=== PATIENT | female | born 1985 | race Caucasian/White ===

== ENCOUNTER → 2017-01-13 | Outpatient (CLI) | payer BC ==
[~2017-01-13] VITALS: Ht 167.6 cm; Wt 106.8 kg
[~2017-01-13] MED LIST: FASTIN30 MG PO; IBU-6600 MG PO; NEXPLANON68 MG ID; PERCOCET 325 MG1 TA2 PO; PRENATAL1 TA1; PRENATAL1 TA7 PO; YAZ 28 3 MG-0.01 TAB PO
[2017-01-13 09:11] VITALS: BP 130/71; PULSE 80
== END ==
LOC: LIGHT 09:00
DX: J30.89 Other allergic rhinitis (principal); R53.83 Other fatigue; F32.89 Other specified depressive episodes; E66.01 Morbid (severe) obesity due to excess calories; Z68.38 Body mass index [BMI] 38.0-38.9, adult

== ENCOUNTER → 2017-02-01 | Outpatient (CLI) | payer BC ==
[~2017-02-01] VITALS: Ht 167.6 cm; Wt 102.3 kg
== END ==
LOC: LIGHT 11:11
DX: Z68.36 Body mass index [BMI] 36.0-36.9, adult (principal)

== ENCOUNTER → 2017-02-11 | Outpatient (CLI) | payer BC ==
[~2017-02-11] VITALS: Ht 167.6 cm; Wt 98.9 kg
[2017-02-24 11:20] VITALS: BP 121/59; PULSE 73
== END ==
LOC: LIGHT 09:45
DX: J30.89 Other allergic rhinitis (principal); F32.89 Other specified depressive episodes; E66.8 Other obesity; Z68.36 Body mass index [BMI] 36.0-36.9, adult; E88.81 Metabolic syndrome and other insulin resistance; G47.09 Other insomnia

== ENCOUNTER → 2017-02-24 | Outpatient (CLI) | payer BC | LOC: LIGHT 09:53 | DX: Z71.3 Dietary counseling and surveillance (principal); Z68.35 Body mass index [BMI] 35.0-35.9, adult ==

== ENCOUNTER → 2017-03-11 | Outpatient (CLI) | payer BC ==
[~2017-03-11] VITALS: Ht 167.6 cm; Wt 95.9 kg
[2017-03-11 10:37] VITALS: BP 102/60; PULSE 68
== END ==
LOC: LIGHT 10:35
DX: J30.9 Allergic rhinitis, unspecified (principal); F32.89 Other specified depressive episodes; E66.9 Obesity, unspecified; Z68.34 Body mass index [BMI] 34.0-34.9, adult

== ENCOUNTER → 2017-04-22 | Outpatient (CLI) | payer BC ==
[~2017-04-22] VITALS: Ht 167.6 cm; Wt 94.6 kg
[2017-04-22 10:28] VITALS: BP 101/56; PULSE 88
== END ==
LOC: LIGHT 10:25
DX: J30.9 Allergic rhinitis, unspecified (principal); F32.89 Other specified depressive episodes; E66.9 Obesity, unspecified; Z68.33 Body mass index [BMI] 33.0-33.9, adult; Z71.3 Dietary counseling and surveillance

== ENCOUNTER → 2017-07-01 | Outpatient (CLI) | payer BC ==
[~2017-07-01] VITALS: Ht 167.6 cm; Wt 98.0 kg
[2017-07-01 10:32] VITALS: BP 98/50; PULSE 60
== END ==
LOC: LIGHT 05-27 15:51
DX: E66.9 Obesity, unspecified (principal); J30.9 Allergic rhinitis, unspecified; F32.9 Major depressive disorder, single episode, unspecified; Z68.34 Body mass index [BMI] 34.0-34.9, adult

== ENCOUNTER → 2017-09-09 | Outpatient (CLI) | payer BC ==
[~2017-09-09] VITALS: Ht 167.6 cm; Wt 94.1 kg
[2017-09-09 09:51] VITALS: BP 104/74; PULSE 72
== END ==
LOC: LIGHT 09:39
DX: J30.9 Allergic rhinitis, unspecified (principal); R53.83 Other fatigue; F32.89 Other specified depressive episodes; E66.9 Obesity, unspecified; Z68.33 Body mass index [BMI] 33.0-33.9, adult; Z71.3 Dietary counseling and surveillance

== ENCOUNTER → 2017-11-25 | Outpatient (CLI) | payer BC ==
[~2017-11-25] VITALS: Ht 167.6 cm; Wt 94.1 kg
[2017-11-25 11:37] VITALS: BP 92/52; PULSE 64
== END ==
LOC: LIGHT 11:16
DX: J30.9 Allergic rhinitis, unspecified (principal); R53.83 Other fatigue; F32.89 Other specified depressive episodes; E66.9 Obesity, unspecified; Z68.33 Body mass index [BMI] 33.0-33.9, adult; Z71.3 Dietary counseling and surveillance
CPT/HCPCS: G0463

== ENCOUNTER → 2018-01-20 | Outpatient (CLI) | payer BC ==
[~2018-01-20] VITALS: Ht 167.6 cm; Wt 88.5 kg
[~2018-01-20] MED LIST changes: +CONCEPT DHA1 CAP PO
[2018-01-20 11:09] VITALS: BP 90/52; PULSE 72
== END ==
LOC: LIGHT 09:33
DX: J30.9 Allergic rhinitis, unspecified (principal); R53.83 Other fatigue; F32.89 Other specified depressive episodes; E66.9 Obesity, unspecified; Z68.31 Body mass index [BMI] 31.0-31.9, adult; Z71.3 Dietary counseling and surveillance
CPT/HCPCS: G0463

== ENCOUNTER → 2018-05-05 | Outpatient (CLI) | payer BC ==
[~2018-05-05] VITALS: Ht 167.6 cm; Wt 88.5 kg
[2018-05-05 10:33] VITALS: BP 94/56; PULSE 92
== END ==
LOC: LIGHT 03-31 10:50
DX: J30.9 Allergic rhinitis, unspecified (principal); R53.83 Other fatigue; F32.89 Other specified depressive episodes; E66.9 Obesity, unspecified; Z68.31 Body mass index [BMI] 31.0-31.9, adult; Z71.3 Dietary counseling and surveillance
CPT/HCPCS: G0463

== ENCOUNTER → 2018-07-21 | Outpatient (CLI) | payer BC ==
[~2018-07-21] VITALS: Ht 167.6 cm; Wt 88.5 kg
[2018-07-21 10:16] VITALS: BP 90/50; PULSE 100
== END ==
LOC: LIGHT 04-05 09:46
DX: J30.9 Allergic rhinitis, unspecified (principal); R53.83 Other fatigue; F32.9 Major depressive disorder, single episode, unspecified; E66.9 Obesity, unspecified; Z68.31 Body mass index [BMI] 31.0-31.9, adult; Z71.3 Dietary counseling and surveillance
CPT/HCPCS: G0463

== ENCOUNTER 2018-11-14 20:47 | Inpatient (IN) | payer BC ==
[~2018-11-14] VITALS: Ht 170.2 cm; Wt 100.5 kg
--- NOTE | 2018-11-14 20:55 | NUR ---
G3L2. 38-5. Ambulatory to LDR 3 independently. Clean gown on. EFM and TOCO explained and applied. Pt states she has been aileen since yesterday irregularly but has been 5minutes apart since 1900 tonight. Denies LOF or vaginal bleeding. Reports good movement. SVE 3-4//-2. Plan of care explained to pt and verbalized understanding. Call light within reach. Will continue to monitor.
[2018-11-14 21:05] VITALS: BP 118/71; PULSE 93; TEMP 97.8
--- NOTE | 2018-11-14 22:00 | NUR ---
IGNACIA /-2. Plan of care explained to pt who verbalizes understanding. 2204: Pt off monitors to use restroom. 7: called no answer. Voicemail left. 2208: called back. Update on pts status given. Admit orders received. See physican notification. 2218: Monitors reapplied and pt updated on plan of care and new orders. PT verbalizes understanding. Questions answered. 2223: IV started and labs obtained via IV site. LR bolus infusing without difficulties. Consents completed and education packet given. Pt waiting on her who get to hospital. 2256: FHR strip reactive. Pt off monitors to ambulate and use birthing ball. Plan of care explained to pt. Call light within reach. Will continue to monitor.
[2018-11-14 22:30] VITALS: BP 111/65; PULSE 76; TEMP 97.6
[2018-11-14 22:54] LABS: BASO # 0.1 (0.0-0.2); BASO % 0.4 % (0.0-2.0); EOS # 0.3 (0.0-0.7); EOS % 2.3 % (0-4.0); GRAN # 8.9 (1.4-6.5); GRAN % 72.5 % (42.2-75.2); HEMATOCRIT 40.7 % (37.0-47.0); HEMOGLOBIN 13.6 g/dl (12.5-16.0); LYMPH # 2.3 (1.2-3.4); LYMPH % 18.7 % (20.0-51.0); MEAN CELL VOLUME 90 fl (80.0-100.0); MEAN CORPUSCULAR HEMOGLOBIN 30 pg (27.0-31.0); MEAN CORPUSCULAR HGB CONC 33 g/dl (33.0-37.0); MEAN PLATELET VOLUME 10.5 fl (7.4-10.4); MONO # 0.7 (0.1-0.6); MONO % 5.5 % (1.7-9.3); PLATELET COUNT 184 K/mm3 (130-400); REDCELL DISTRIBUTION WIDTH-CV 12.9 % (11.5-14.5)
[2018-11-14 23:00] VITALS: BP 107/67; PULSE 72
[2018-11-15] VITALS (14 sets, daily range): BP systolic 87–115; BP diastolic 46–70; PULSE 64–89; TEMP 97.4–98.4
--- NOTE | 2018-11-15 00:57 | NUR ---
Pt on birthing ball. TOCO tracing maternal heart rate due to maternal position. RN at pts side adjusting monitors. 0100: Pt assisted back to bed and wedge left position. TOCO adjusted and tracing FHR well. 0110: at nurses station and updated on SVE 7/90/-1 given. reviews FHR strip at desk. 0115: at pt's bedside. AROM by at this time. Small amount of clear fluid noted. SVE 8/0 per provider. 0126: Pt called out stating she was needing to push. SVE 9/100/0 updated on status. 0130: at bedside and pt stating she still had the urge to push. SVE per provider C/0. Pt assisted into footplates and educated on pushing with contractions. 0136: Pt begins pushing with contractions with . 0151: Spontaneous vaginal delivery of viable male infant by . to chest where stimulated and dried by MATI Flores. Cord clamped X2 and cut by FOB. Care of infant assumed by MATI Flores. Lidocaine administered per provider for laceration repair. 0200: Spontaneous vaginal delivery of intact placenta by . Pitocin started at 333mus/hr per protocol. Fundal message performed per provider. Superficial perineal laceration repaired by . Pericare provided, pads changed and ice pack applied. Plan of care and safety precautions explained to pt and who verbalize understanding. 0211: Pt having extreme pain and cramping. updated and medication orders received. 8mgs of Morphine administered per orders. Call light within reach. Will continue to monitor.
--- NOTE | 2018-11-15 04:30 | NUR ---
Pt ready to void. Fundus firm and midline. Bleeding moderate no clots noted. Pt assisted to edge of bed. Denies lightheadedness or dizziness. Pt assisted to bathroom standby assist. Pt able to void without difficulties. Pericare provided. Mesh panites, pad and ice pack applied. Pt ambulatory to room 208 and oriented to room. Call light within reach. Will continue to monitor.
--- NOTE | 2018-11-15 10:14 | NUR ---
Initial visit; Patient thanked Receiving Worker for offering congratulations for the of her son and for thanking her for choosing [facility].
[2018-11-16] MEDS ORDERED: IBU600 MG PO (08:40)
[2018-11-16] MEDS ORDERED: PERCOCET 325 MG1 TA2 PO (08:40)
[2018-11-16 08:50] VITALS: BP 107/75; PULSE 85; TEMP 97.9
== END 2018-11-16 13:50 | disposition home or self-care (01) | DRG 807 ==
LOC: LDRO 20:47 → LDR 22:11 → OB 11-15 04:55
PROVIDERS: ADMIT Obstetrics & Gynecology
PROC: 10E0XZZ Delivery of Products of Conception, External Approach (ICD-10-PCS; principal; 2018-11-15)
PROC: 0HQ9XZZ Repair Perineum Skin, External Approach (ICD-10-PCS; 2018-11-15)
DX: O70.4 Anal sphincter tear complicating delivery, not associated with third degree laceration (principal); Z37.0 Single live birth; Z3A.38 38 weeks gestation of pregnancy; O26.893 Other specified pregnancy related conditions, third trimester; Z67.21 Type B blood, Rh negative; O99.214 Obesity complicating childbirth
CPT/HCPCS: J2270; J2590; J2791; J7120

== ENCOUNTER → 2020-08-23 | Outpatient (CLI) | payer BC ==
[~2020-08-23] MED LIST changes: +IBU600 MG PO; +IBU800 M1 PO
== END | disposition still patient (30) ==
LOC: ZCOL.LAB 05:49
DX: Z20.828 Contact with and (suspected) exposure to other viral communicable diseases (principal)

== ENCOUNTER 2020-08-25 17:47 | Inpatient (IN) | payer BC ==
[2020-08-25] VITALS (18 sets, daily range): BP systolic 92–135; BP diastolic 46–81; PULSE 59–100; TEMP 98.2–98.3
[~2020-08-25] VITALS: Ht 167.6 cm; Wt 117.3 kg
[~2020-08-25 17:47] MED LIST changes: -IBU800 M1 PO
[2020-08-25 19:26] LABS: BASO % 0.2 % (0.0-2.0); EOS # 0.2 (0.0-0.7); EOS % 1.5 % (0-4.0); GRAN # 7.6 (1.4-6.5); GRAN % 76.8 % (42.2-75.2); LYMPH # 1.6 (1.2-3.4); LYMPH % 16.1 % (20.0-51.0); MEAN CELL VOLUME 89 fl (80.0-100.0); MEAN CORPUSCULAR HEMOGLOBIN 29 pg (27.0-31.0); MEAN CORPUSCULAR HGB CONC 33 g/dl (33.0-37.0); MEAN PLATELET VOLUME 10.7 fl (7.4-10.4); MONO # 0.5 (0.1-0.6); PLATELET COUNT 212 K/mm3 (130-400); RED BLOOD COUNT 4.15 M/mm3 (4.10-5.30); REDCELL DISTRIBUTION WIDTH-CV 13.2 % (11.5-14.5)
[2020-08-25 19:39] LABS: HEMATOCRIT 36.8 % (37.0-47.0)
[2020-08-26 00:49] VITALS: BP 102/51; PULSE 89; TEMP 97.8
[2020-08-26 04:08] VITALS: BP 102/61; PULSE 80; TEMP 97.9
[2020-08-26 06:30] VITALS: BP 103/68; BP 106/74; PULSE 75; PULSE 79; TEMP 97.8; TEMP 98
[2020-08-26 13:45] VITALS: BP 109/63; PULSE 80; TEMP 97.5
[2020-08-26 17:00] VITALS: BP 111/64; PULSE 74; TEMP 97.9
[2020-08-26 21:20] VITALS: BP 105/63; PULSE 82; TEMP 97.8
[2020-08-27 07:30] VITALS: BP 105/72; PULSE 99; TEMP 98
[2020-08-27] MEDS ORDERED: IBU800 M1 PO (09:02)
== END 2020-08-27 15:12 | disposition home or self-care (01) | DRG 807 ==
LOC: LDRO 17:47 → OB 17:51 → LDR 17:51 → OB 23:45
PROVIDERS: Obstetrics & Gynecology; ADMIT Obstetrics & Gynecology
PROC: 10E0XZZ Delivery of Products of Conception, External Approach (ICD-10-PCS; principal; 2020-08-25)
PROC: 10907ZC Drainage of Amniotic Fluid, Therapeutic from Products of Conception, Via Natural or Artificial Opening (ICD-10-PCS; 2020-08-25)
DX: O48.0 Post-term pregnancy (principal); Z37.0 Single live birth; O69.81X0 Labor and delivery complicated by cord around neck, without compression, not applicable or unspecified; Z3A.40 40 weeks gestation of pregnancy
CPT/HCPCS: J2400; J2590; J2791; J7120